=== PATIENT | female | born 1960 | race Caucasian/White ===

== ENCOUNTER → 2019-02-24 | Outpatient (REF) | payer OTHER ==
[~2019-02-24] MED LIST: AMIT50TA PO; ASPI81TA85 PO; ATOR1TAB21 PO; CITA20TA6 PO; CO Q10CA PO; HYDR25TAB PO; METO1TAB7 PO; OMEP-221 PO
[2019-02-24 13:25] LABS: APPEARANCE, URINE CLEAR (CLEAR); BACTERIA, URINE AUTO NEGATIVE (NEGATIVE); BILIRUBIN, URINE AUTO NEGATIVE (NEGATIVE); BLOOD, URINE BLOOD 2+ (NEGATIVE); COLOR, URINE YELLOW (YELLOW); GLUCOSE, URINE (UA) AUTO NEGATIVE (NEGATIVE); KETONE, URINE AUTO NEGATIVE (NEGATIVE); LEUKOCYTE ESTERASE, URINE AUTO NEGATIVE (NEGATIVE); NITRITE, URINE AUTO NEGATIVE (NEGATIVE); PROTEIN, URINE AUTO NEGATIVE (NEGATIVE); RBC, URINE AUTO 17 /HPF (0-3); SQUAMOUS EPITHELIAL CELL UR AU 0 /HPF (0-6); UROBILINOGEN, URINE AUTO 0.2 mg/dL (0.0-2.0); WBC, URINE AUTO 0 /HPF (0-3)
== END ==
LOC: M SMT 12:45
PROVIDERS: ATTEND Nurse Practitioner Family
DX: R31.29 Other microscopic hematuria (principal)

== ENCOUNTER 2019-05-05 09:34 | Day surgery (SDC) | payer BC, OTHER ==
[~2019-05-05] VITALS: Ht 157.5 cm; Wt 70.3 kg
[~2019-05-05 09:34] MED LIST changes: +LR 1,000 ML IV ONE; +PROPOFOL 200 MG/20 ML VIAL As Ordered ONE; +mitoMYcin 40MG VIAL *UROLOGY* (J9280 PER 5MG) INTRAVESIC ONE
[2019-05-05] MEDS ORDERED: LIDOCAINE 2% INJ 100 MG/5 ML SDV (FOR ANES.) As Ordered ONE (10:49)
[2019-05-05] MEDS ORDERED: ROCURONIUM BROMIDE 50 MG/5 ML VIAL As Ordered ONE (10:49)
[2019-05-05] MEDS ORDERED: PROPOFOL 200 MG/20 ML VIAL As Ordered ONE (10:49)
[2019-05-05] MEDS ORDERED: ONDANSETRON 4MG/2ML VIAL (J2405) As Ordered ONE (10:50)
[2019-05-05] MEDS ORDERED: fentaNYL 100 MCG/2 ML INJECTION (J3010) As Ordered ONE (10:50)
[2019-05-05] MEDS ORDERED: MIDAZOLAM INJ 2 MG/2 ML VIAL (J2250) As Ordered ONE (10:50)
[2019-05-05] MEDS ORDERED: dexameTHASONE 4 MG/ML 1ML VIAL (J1100) As Ordered ONE (10:50)
[2019-05-05] MEDS ORDERED: ceFAZolin SOD 2 GM in IV 1 EA IV ONE (11:15)
[2019-05-05] MEDS ORDERED: SUGAMMADEX SODIUM 500 MG/5 ML VIAL (BRIDION) As Ordered ONE (13:27)
[2019-05-05] MEDS ORDERED: ACETAMINOPHEN 1000MG 100ML IV BTL (OFIRMEV) (J0131 PER 10MG) As Ordered ONE (13:34)
[2019-05-05] MEDS ORDERED: ONDANSETRON 4MG/2ML VIAL (J2405) IV PRN (14:15)
[2019-05-05] MEDS ORDERED: METOCLOPRAMIDE INJ 10MG/2ML VIAL (J2765) IV PRN (14:15)
[2019-05-05] MEDS ORDERED: ACETAMINOPHEN TAB 650MG DOSE (2X325MG) PO PRN (14:15)
[2019-05-05] MEDS ORDERED: oxyCODONE 5MG TAB PO PRN (14:15)
[2019-05-05] MEDS ORDERED: fentaNYL 100 MCG/2 ML INJECTION (J3010) IV PRN (14:15)
[2019-05-05] MEDS ORDERED: LR 1,000 ML IV SCH (14:15)
[2019-05-05 16:35] VITALS: BP 132/80
--- NOTE | 2019-05-05 17:40 | RO ---
DATE OF PROCEDURE: 05/05/2019 PREPROCEDURE DIAGNOSIS: Bladder tumor. POSTPROCEDURE DIAGNOSIS: Bladder tumor. PROCEDURE: Cystoscopy, transurethral resection of bladder tumor (less than 2 cm), intravesical Mitomycin C instillation. SURGEON: Adrien Hoffman MD [employer] SUPERVISOR: None. ANESTHESIA: General. OPERATIVE INDICATIONS: This is a 58-year-old female who was found to have a papillary bladder tumor on recent office cystoscopy. She was brought to the operating room today for the above listed procedure. DESCRIPTION OF PROCEDURE: The patient was brought to the operating room, general anesthesia was induced. Prophylactic antibiotics were infused. She was then placed in the dorsal lithotomy position and prepped and draped in the usual sterile fashion. A resectoscope was inserted into the urethral meatus and advanced to the bladder using visual obturator. Once inside the bladder, it was thoroughly examined. The only abnormality seen was a 1-1/2 cm papillary tumor on the left wall just above the level of the left ureteral orifice. Both ureteral orifices were orthotopic and effluxed clear urine. At this point, a resectoscope was utilized to resect the bladder tumor completely. The specimen was sent off as bladder tumor. I then dissected underneath the bladder tumor, and that was sent as resection of bladder tumor base. The area of resection was then cauterized until good hemostasis. Also, of note, there is an area on the left lateral wall near the bladder neck that appeared somewhat mildly suspicious. This area was fulgurated with the coagulation current. Once satisfied, the resectoscope was removed, and an #18-Spanish three-way catheter was inserted into the bladder. The balloon was filled with 30 mL of sterile water. The irrigation port was then hooked up to saline and then was clamped. I then instilled 40 mg of Mitomycin C into the bladder and then the outflow port was plugged. This marked the conclusion of the procedure. The patient was then taken out of the dorsal lithotomy position, awakened from anesthesia and transported to the recovery room in stable condition. Estimated blood loss: 5 mL. Complications: None. Specimens: Bladder tumor, resection of bladder tumor base. PLAN: The patient will keep the Mitomycin C in her bladder for approximately 1 hour in the recovery room. After that has passed, the Mitomycin C will be allowed to drain out and then we will irrigate her bladder out with a liter of fluid. Once that is done, the catheter will be connected to drainage, and she will be discharged home with a plan for her to followup in the clinic in 1 week for catheter removal and pathology results.
== END 2019-05-05 16:35 | disposition home or self-care (01) ==
LOC: M SDC 09:34
PROVIDERS: ATTEND Urology
DX: C67.9 Malignant neoplasm of bladder, unspecified (principal); I10 Essential (primary) hypertension; E78.00 Pure hypercholesterolemia, unspecified; F17.210 Nicotine dependence, cigarettes, uncomplicated; E16.2 Hypoglycemia, unspecified; K21.9 Gastro-esophageal reflux disease without esophagitis; F41.9 Anxiety disorder, unspecified; F32.9 Major depressive disorder, single episode, unspecified; R06.83 Snoring; Z88.2 Allergy status to sulfonamides; Z79.899 Other long term (current) drug therapy; Z79.82 Long term (current) use of aspirin; Z78.0 Asymptomatic menopausal state
CPT/HCPCS: 51720; 52234; 88305; J0131; J0690; J1100; J2250; J2405; J3010; J9280

== ENCOUNTER → 2019-08-14 | Outpatient (REF) | payer OTHER ==
[~2019-08-14] MED LIST changes: -LR 1,000 ML IV ONE; -PROPOFOL 200 MG/20 ML VIAL As Ordered ONE; -mitoMYcin 40MG VIAL *UROLOGY* (J9280 PER 5MG) INTRAVESIC ONE
== END ==
LOC: M SMT 13:14
PROVIDERS: ATTEND Urology
DX: C67.9 Malignant neoplasm of bladder, unspecified (principal)

== ENCOUNTER → 2019-11-13 | Outpatient (REF) | payer OTHER | LOC: M SMT 17:16 | PROVIDERS: ATTEND Urology | DX: C67.9 Malignant neoplasm of bladder, unspecified (principal) ==

== ENCOUNTER → 2020-02-19 | Outpatient (REF) | payer OTHER ==
[~2020-02-19] MED LIST changes: -ASPI81TA85 PO; +ASPI81TA86 PO
== END ==
LOC: M LAB REF 11:39
PROVIDERS: ATTEND Urology
DX: C67.9 Malignant neoplasm of bladder, unspecified (principal)

== ENCOUNTER → 2020-05-17 | Outpatient (REF) | payer OTHER | LOC: M SMT 16:49 | PROVIDERS: ATTEND Urology | DX: C67.9 Malignant neoplasm of bladder, unspecified (principal) ==

== ENCOUNTER → 2021-01-27 | Outpatient (REF) | payer OTHER ==
[~2021-01-27] MED LIST changes: +HYDR-3490 PO; -HYDR25TAB PO
== END ==
LOC: M SMT 13:19
PROVIDERS: ATTEND Urology
DX: C67.9 Malignant neoplasm of bladder, unspecified (principal)

== ENCOUNTER → 2021-09-08 | Outpatient (REF) | payer OTHER ==
[~2021-09-08] MED LIST changes: -OMEP-221 PO; +OMEP40CA5 PO
== END ==
LOC: M SMT 12:48
PROVIDERS: ATTEND Urology
DX: C67.9 Malignant neoplasm of bladder, unspecified (principal)

== ENCOUNTER → 2022-09-14 | Outpatient (REF) | payer BC, OTHER | LOC: M SMT 13:07 | PROVIDERS: ATTEND Urology | DX: R82.89 Other abnormal findings on cytological and histological examination of urine (principal); C67.9 Malignant neoplasm of bladder, unspecified ==

== ENCOUNTER → 2023-09-13 | Outpatient (REF) | payer OTHER, BC | LOC: M SMT 12:24 | PROVIDERS: ATTEND Urology | DX: C67.9 Malignant neoplasm of bladder, unspecified (principal) ==

== ENCOUNTER → 2024-10-02 | Outpatient (REF) | payer OTHER, BC | LOC: M SMT 12:59 | PROVIDERS: ATTEND Urology | DX: C67.9 Malignant neoplasm of bladder, unspecified (principal) ==